=== PATIENT | male | born 1975 | race Caucasian/White ===

== ENCOUNTER 2018-07-31 17:27 | Inpatient (IN) ==
[2018-07-31] MEDS ORDERED: Sod Chloride 0.9% Inj 1,000 ML IV.SIG ONE (19:50)
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
[2018-07-31 20:58] LABS: Baso % (Auto) 0.4 % (0.0-2.0); Eos # (Auto) 0.1 th/mm3 (0.0-0.4); Hematocrit 40.4 % (39.0-51.0); Hemoglobin 14.4 gm/dL (13.0-17.0); Lymph # (Auto) 3.4 th/mm3 (1.0-4.8); Lymph % (Auto) 34.8 % (9.0-44.0); Mean Corpuscular HGB Conc 35.8 % (32.0-36.0); Mean Corpuscular Hemoglobin 32.4 pg (27.0-34.0); Mean Corpuscular Volume 90.7 fL (80.0-100.0); Mean Platelet Volume 7.9 fL (7.0-11.0); Mono # (Auto) 1.2 th/mm3 (0.0-0.9); Mono % (Auto) 12.6 % (0.0-8.0); Neut % (Auto) 51.2 % (16.0-70.0); Platelet Count 272 th/mm3 (150-450); Red Blood Count 4.45 mil/mm3 (4.50-5.90); Red Cell Distribution Width 12.4 % (11.6-17.2); White Blood Count 9.7 th/mm3 (4.0-11.0)
[2018-07-31 21:04] LABS: Bilirubin,Urine Negative (Negative); Clarity,Urine Clear (Clear); Color,Urine Yellow (Yellw/Straw); Glucose,Urine (UA) Negative (Negative); Leukocyte Esterase,Urine Negative (Negative); Nitrite,Urine Negative (Negative); Specific Gravity,Urine Greater/Equal 1.030 (1.002-1.035); Urobilinogen,Urine 0.2 mg/dL (Less than 2)
[2018-07-31 21:06] LABS: Chloride 105 meq/L (98-107); Potassium 3.5 meq/L (3.5-5.1); Sodium 140 meq/L (136-145)
[2018-07-31 21:07] LABS: Mucus,Urine Many /lpf (Occasional); RBC,Urine 0-3 /hpf (0-3); Squamous Epithelial Cell,Urine 0-5 /hpf (0-5); WBC,Urine 0-5 /hpf (0-5)
[2018-07-31 21:10] LABS: Albumin 3.6 g/dL (3.4-5.0); Anion Gap 10 meq/L (5-15); Blood Urea Nitrogen 15 mg/dL (7-18); Calcium 9.2 mg/dL (8.5-10.1); Carbon Dioxide 25.1 meq/L (21.0-32.0); Glucose,Random 109 mg/dL (74-106); Lipase 201 U/L (73-393)
[2018-07-31 21:13] LABS: Alanine Aminotransferase 28 U/L (12-78); Aspartate Aminotransferase 33 U/L (15-37); Glomerular Filtration Rate 73 mL/min (>89)
--- NOTE | 2018-07-31 21:14 | XR ---
EXAM DATE: 07/31/2018 9:03 PM EDT AGE/SEX: 43 years / Male INDICATIONS: Fever and short of breath for two days. CLINICAL DATA: This is the patient's initial encounter. Patient reports that signs and symptoms have been present for 1 day and indicates a pain score of 0/10. MEDICAL/SURGICAL HISTORY: None. None. COMPARISON: [facility], CHEST 1V SINGLE AP, 07/15/2018. . FINDINGS: There is a 3.3 cm mass of the right midlung with possible cavitation, new. There is mild consolidation of the left lung base. No pleural effusion or pneumothorax. CONCLUSION: 1. Right mid lung mass with possible cavitation. As this is new, it is presumably infectious or infl ammatory. 2. Mild left base consolidation seen as well. Electronically signed by: Alessio Rodriguez MD 07/31/2018 9:13 PM EDT
[2018-07-31 21:15] LABS: Total Protein 7.6 g/dL (6.4-8.2)
[2018-07-31 21:16] LABS: Alkaline Phosphatase 84 U/L (45-117)
[2018-07-31 21:22] LABS: Thyroid Stimulating Hormone 1.8 uIU/mL (0.358-3.740)
[2018-07-31] MEDS ORDERED: Aztreonam Inj 2 GM in Sodium Chloride 0.9% Inj 100 ML IV.SIG ONE (21:30)
[2018-07-31] MEDS ORDERED: Sod Chloride 0.9% Inj 1,000 ML IV.SIG SCH (21:30)
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
[2018-07-31] MEDS: Sod Chloride 0.9% Inj 1,000 ML IV.CONT SCH (22:44)
[2018-08-01] MEDS: Sod Chloride 0.9% Inj 1,000 ML IV.CONT SCH ×3 (05:50→17:33)
[2018-08-01 06:24] LABS: Baso % (Auto) 0.2 % (0.0-2.0); Eos # (Auto) 0.2 th/mm3 (0.0-0.4); Eos % (Auto) 1.8 % (0.0-4.0); Hematocrit 37.2 % (39.0-51.0); Lymph # (Auto) 2.8 th/mm3 (1.0-4.8); Lymph % (Auto) 33.9 % (9.0-44.0); Mean Corpuscular HGB Conc 34.9 % (32.0-36.0); Mean Corpuscular Hemoglobin 31.6 pg (27.0-34.0); Mean Corpuscular Volume 90.5 fL (80.0-100.0); Mean Platelet Volume 8.6 fL (7.0-11.0); Mono # (Auto) 1.3 th/mm3 (0.0-0.9); Mono % (Auto) 15.9 % (0.0-8.0); Neut # (Auto) 4.1 th/mm3 (1.8-7.7); Neut % (Auto) 48.2 % (16.0-70.0); Platelet Count 232 th/mm3 (150-450); Red Blood Count 4.11 mil/mm3 (4.50-5.90); Red Cell Distribution Width 12.8 % (11.6-17.2); White Blood Count 8.4 th/mm3 (4.0-11.0)
[2018-08-01 06:27] LABS: Potassium 3.9 meq/L (3.5-5.1)
[2018-08-01 06:45] LABS: Calcium 8.4 mg/dL (8.5-10.1); Carbon Dioxide 25.5 meq/L (21.0-32.0)
[2018-08-01] MEDS ORDERED: Tuberculin PPD 5 UNITS/0.1 ML Syringe I-DERMAL ONE (08:00)
[2018-08-01] MEDS: Acetaminophen 325 MG Tablet PO PRN ×2 (08:16→20:20)
[2018-08-01] MEDS: Enoxaparin Inj 40 MG/0.4 ML Syringe SQ SCH (08:16)
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
--- NOTE | 2018-08-01 15:45 | MB ---
cc: Chioma Bedolla MD DATE: 08/01/2018 REASON FOR CONSULTATION: Bilateral lung nodules. HISTORY OF PRESENT ILLNESS: The patient is a 43-year-old male who presents to the emergency room with a fever which he had at home. The patient has previously been in the emergency room on 07/15/2018 with an insect bite and cellulitis, for which he was given antibiotic therapy. 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 He denies history of cough, expectoration, hemoptysis, TB or previous industrial exposure. PAST MEDICAL HISTORY: Insect bite and cellulitis as above. FAMILY HISTORY: Noncontributory. SOCIAL HISTORY: The patient does smoke a pack of cigarettes a day for over 20 years, has 2-3 drinks a week. Does not use drugs. REVIEW OF SYSTEMS: A 12-point review of systems as per HPI. PAST HISTORY: Otherwise negative. PHYSICAL EXAMINATION: VITAL SIGNS: Temperature max 102 degrees Fahrenheit, pulse 90, respirations 18, blood pressure 140/78. HEENT: Unremarkable. Eyes without icterus. NECK: Without adenopathy, thyroid enlargement. Central trachea. CHEST: Without dullness to percussion. Clear to auscultation. HEART: PMI not appreciated. S1, S2 audible. No murmur. No rub. ABDOMEN: Lax, audible bowel sounds. PSYCHIATRIC: No clubbing, cyanosis or edema. SKIN: No lymphadenopathy. LABORATORY DATA: White count 9.7, hemoglobin 14, hematocrit 40. Sodium 140, potassium 3.5, BUN 15, creatinine 1.1. IMAGIN. Chest x-ray with a questionable mass, right mid lung. 2. CT scan of the chest with scattered areas of nodular consolidation in both lungs and ground glass appearance favor infectious process. Fatty liver is noted. IMPRESSION: Bilateral lung nodules with temperature elevation. PLAN: The patient's findings by CT are suggestive of an infectious process. Antibiotic therapy has been initiated intravenously and appropriately, so I would assess the patient's response in temperature elevation. Should he show improvement and resolution of underlying findings, well and good. If not, further evaluation will become necessary. I do thank you for asking me to partake in Mr. Faw's care. MD KIRAN Rahman/[email or web address]/rey , 10:38 AM , 10:46 AM
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
[2018-08-01] MEDS ORDERED: Levofloxacin 250 mg Premix Inj 250 MG/50 ML PIGGYBACK IV.SIG SCH (22:00)
[2018-08-02 04:20] LABS: Hepatitits B Surface Antigen Nonreactive (Nonreactive)
[2018-08-02 04:44] LABS: Hepatitis A IgM Antibody Nonreactive (Nonreactive)
[2018-08-02] MEDS: Sod Chloride 0.9% Inj 1,000 ML IV.CONT SCH (05:50)
[2018-08-02] MEDS: Enoxaparin Inj 40 MG/0.4 ML Syringe SQ SCH (08:41)
--- NOTE | 2018-08-02 08:49 | P.PN ---
Subjective Interval history: 43-year-old male who is seen and examined today for follow-up on abnormal CT, atypical lung nodules, febrile illness. Patient still with some low-grade fever of 100.2 at 8 PM last night. Since then patient been afebrile. Still awaiting echocardiogram. Patient did have dental work done one month prior to his symptoms starting. Patient also started with new tattoo work 2 days ago. Physical Exam Vital signs: Vital Signs 08/01/18 09:39 08/01/18 11:44 08/01/18 20:00 Temperature 98.7 F 100.2 F H Pulse Rate 73 84 Respiratory Rate 20 18 20 Blood Pressure 129/63 156/86 H Pulse Oximetry 95 96 08/02/18 00:00 Temperature 98.4 F Pulse Rate 67 Respiratory Rate 20 Blood Pressure 145/85 H Pulse Oximetry 95 Intake & Output 08/01/18 08/02/18 08/02/18 18:59 06:59 18:59 Intake Total 3040 / 3040 1240 / 1240 Balance 3040 / 3040 1240 / 1240 Weight 104.3 kg Intake: IV 2100 / 2100 1000 / 1000 NS Inj 1,000 ML @ 100 mls/hr IV 2000 / 2000 1000 / 1000 .CONT .Q10H [facility] Rx#:[id number] Rocephin Inj 2,000 MG In NS Inj 100 / 100 100 ML @ 200 mls/hr IV.SIG Q24H [facility] Rx#:[id number] Oral 940 / 940 240 / 240 Other: # Voids 6 4 # Bowel Movements 2 Narrative: GENERAL: Well-developed, well-nourished, in no acute distress. alert and orientated HEENT: Head is normocephalic without any lesions or masses noted. Facial features are symmetric. Eyes: Extraocular muscles are intact. Conjunctivae were clear. NECK: Supple without any masses. Trachea midline no deviation. No JVD, CARDIAC: Regular rhythm, regular rate. S1/S2 are heard. No murmurs gallops or rubs. LUNGS: Clear to auscultation bilaterally. No wheeze, rhonchi or rales. No use of accessory muscles on inspiration or expiration. ABDOMEN: Soft, nontender. Nondistended. Bowel sounds heard in all 4 quadrants. No organomegaly or masses. Negative rebound, negative guarding EXTREMITIES: No edema, pulses are equal bilaterally. No cyanosis or clubbing NEUROLOGY: Mood and affect appear appropriate. Cranial nerves II through XII grossly intact. Moving all extremities, speech is clear Results - Labs CBC & Chem 7: 08/01/18 05:13 08/01/18 05:13 Laboratory Results - last 24 hr 08/01/18 08/01/18 22:50 22:50 C-Reactive Protein 5.73 H Hepatitis A IgM Ab Nonreactive Hep Bs Antigen Nonreactive Hep B Core IgM Ab Nonreactive Hep C IgG Ab Nonreactive Microbiology 07/31/18 20:48 Blood - Peripheral Aerobic Blood Culture - Preliminary No growth in 1 day 07/31/18 20:48 Blood - Peripheral Anaerobic Blood Culture - Preliminary No growth in 1 day 07/31/18 20:42 Blood - Peripheral Aerobic Blood Culture - Preliminary No growth in 1 day 07/31/18 20:42 Blood - Peripheral Anaerobic Blood Culture - Preliminary No growth in 1 day Assessment and Plan - Assessment (1) Fever Code(s): R50.9 - Fever, unspecified Status: Acute (2) Pneumonia Code(s): J18.9 - Pneumonia, unspecified organism Status: Acute (3) Pulmonary cavitary lesion Code(s): J98.4 - Other disorders of lung Status: Acute - Plan Febrile illness with abnormal radiological studies -Patient with recent insect bite which has improved. Previous chest x-ray on was normal. Now presenting with significant x-ray findings of cavitary lesion, CT finding of scattered nodular densities, ringlike lesion of the liver. -Suspecting endocarditis -Patient changed over to Rocephin IV -C-reactive protein elevated -Awaiting echocardiogram -Blood cultures are negative for 1 day, fungal blood cultures are pending -Infectious disease is following the patient -Data Report Analyst is following the patient DVT prevention -Sequential compression devices
--- NOTE | 2018-08-02 15:34 | ECHRPT ---
Indication: SEPSIS CONCLUSIONS The left ventricular systolic function is normal with an estimated ejection fraction in the range of 60-65%. Normal left ventricular size. Wall thickness is normal. No regional wall motion abnormalities are present. Trivial pulmonary valve regurgitation. BP: / HR: Rhythm: Sinus MEASUREMENTS (Male / Female) Normal Values Technical Quality:Good 2D ECHO LV Diastolic Diameter PLAX 4.9 cm 4.2 - 5.9 / 3.9 - 5.3 cm LV Systolic Diameter PLAX 3.4 cm IVS Diastolic Thickness 0.9 cm 0.6 - 1.0 / 0.6 - 0.9 cm LVPW Diastolic Thickness 1.0 cm 0.6 - 1.0 / 0.6 - 0.9 cm LV Relative Wall Thickness 0.4 RV Internal Dim ED PLAX 2.8 cm LVOT Diameter 2.2 cm LA Systolic Diameter LX 3.4 cm 3.0 - 4.0 / 2.7 - 3.8 cm LV Ejection Fraction MOD 4C 69.2 % LV Ejection Fraction 4C AL 71.8 % M-MODE Aortic Root Diameter MM 2.4 cm LA Systolic Diameter MM 3.4 cm LA Ao Ratio MM 1.4 AV Cusp Separation MM 2.2 cm DOPPLER AV Peak Velocity 157.0 cm/s AV Peak Gradient 9.9 mmHg LVOT Peak Velocity 127.0 cm/s LVOT Peak Gradient 6.5 mmHg AV Area Cont Eq pk 3.1 cm MV Area PHT 4.0 cm Mitral E Point Velocity 45.7 cm/s Mitral A Point Velocity 64.7 cm/s Mitral E to A Ratio 0.7 LV E' Lateral Velocity 6.9 cm/s Mitral E to LV E' Lateral Ratio 6.6 LV E' Septal Velocity 11.1 cm/s Mitral E to LV E' Septal Ratio 4.1 PV Peak Velocity 96.4 cm/s PV Peak Gradient 3.7 mmHg FINDINGS LEFT VENTRICLE The left ventricular systolic function is normal with an estimated ejection fraction in the range of 60-65%. Normal left ventricular size. Wall thickness is normal. No regional wall motion abnormalities are present. RIGHT VENTRICLE Normal right ventricular size and systolic function. LEFT ATRIUM The left atrial size is normal. RIGHT ATRIUM The right atrial size is normal. ATRIAL SEPTUM Normal atrial septal thickness without atrial level shunting by limited color doppler interrogation. AORTA The aortic root and proximal ascending aorta are normal in size on limited imaging. MITRAL VALVE Structurally normal mitral valve. No mitral valve stenosis or regurgitation. AORTIC VALVE Trileaflet aortic valve. No aortic valve stenosis or regurgitation. TRICUSPID VALVE Structurally normal tricuspid valve. No tricuspid valve stenosis or regurgitation. PULMONARY VALVE Trivial pulmonary valve regurgitation. VESSELS The inferior vena cava is normal in size. PERICARDIUM No pericardial effusion. Areli Molina MD (Electronically Signed) Final Date:02 August 2018 15:33
[2018-08-02] MEDS: Acetaminophen 325 MG Tablet PO PRN (20:56)
[2018-08-03] MEDS: Enoxaparin Inj 40 MG/0.4 ML Syringe SQ SCH (08:16)
[2018-08-03] MEDS: Acetaminophen 325 MG Tablet PO PRN (08:32)
--- NOTE | 2018-08-03 09:16 | P.PN ---
Subjective Interval history: 43-year-old male who is seen and examined today for follow-up on fever, atypical pneumonia, abnormal x-ray. Patient is afebrile at this time. Denies any new complaints. States that he has been getting some chills and sweats, however has not had any fever. Vital signs remained stable Physical Exam Vital signs: Vital Signs 08/02/18 12:00 08/02/18 16:00 08/02/18 20:00 Temperature 98.8 F 97.1 F L 98.6 F Pulse Rate 81 74 69 Respiratory Rate 18 18 18 Blood Pressure 169/81 H 131/73 161/81 H Pulse Oximetry 96 96 95 08/03/18 00:00 08/03/18 02:09 Temperature 98.3 F Pulse Rate 72 Respiratory Rate 18 18 Blood Pressure 133/75 Pulse Oximetry 95 Intake & Output 08/02/18 08/03/18 08/03/18 18:59 06:59 18:59 Intake Total 2980 / 2980 1000 / 1000 Balance 2980 / 2980 1000 / 1000 Weight 104.3 kg Intake: IV 1100 / 1100 NS Inj 1,000 ML @ 100 mls/hr IV 1000 / 1000 .CONT .Q10H [facility] Rx#:[id number] Rocephin Inj 2,000 MG In NS Inj 100 / 100 100 ML @ 200 mls/hr IV.SIG Q24H [facility] Rx#:[id number] Oral 1880 / 1880 1000 / 1000 Other: # Voids 4 2 Date of Last Bowel Movement 08/02/18 # Bowel Movements 1 Narrative: GENERAL: Well-developed, well-nourished, in no acute distress. alert and orientated HEENT: Head is normocephalic without any lesions or masses noted. Facial features are symmetric. Eyes: Extraocular muscles are intact. Conjunctivae were clear. NECK: Supple without any masses. Trachea midline no deviation. No JVD, CARDIAC: Regular rhythm, regular rate. S1/S2 are heard. No murmurs gallops or rubs. LUNGS: Clear to auscultation bilaterally. No wheeze, rhonchi or rales. No use of accessory muscles on inspiration or expiration. ABDOMEN: Soft, nontender. Nondistended. Bowel sounds heard in all 4 quadrants. No organomegaly or masses. Negative rebound, negative guarding EXTREMITIES: No edema, pulses are equal bilaterally. No cyanosis or clubbing NEUROLOGY: Mood and affect appear appropriate. Cranial nerves II through XII grossly intact. Moving all extremities, speech is clear Results - Labs CBC & Chem 7: 08/01/18 05:13 08/01/18 05:13 Microbiology 08/02/18 13:15 Urine - Clean Catch Urine Legionella Antigen - Final Presumptive negative for Legionella pneumophila serogroup 1 antigen in urine, suggesting no recent or recurrent infection. Infection due to Legionella cannot be ruled out since other serogroups and species may cause disease, antigen may not be present in urine in early infection, and the level of antigen present in the urine may be below the detection limit of the test. 07/31/18 20:48 Blood - Peripheral Aerobic Blood Culture - Preliminary No growth in 2 days 07/31/18 20:48 Blood - Peripheral Anaerobic Blood Culture - Preliminary No growth in 2 days 07/31/18 20:42 Blood - Peripheral Aerobic Blood Culture - Preliminary No growth in 2 days 07/31/18 20:42 Blood - Peripheral Anaerobic Blood Culture - Preliminary No growth in 2 days - Procedures ECHOCARDIOGRAM CONCLUSIONS The left ventricular systolic function is normal with an estimated ejection fraction in the range of 60-65%. Normal left ventricular size. Wall thickness is normal. No regional wall motion abnormalities are present. Trivial pulmonary valve regurgitation. Assessment and Plan - Assessment (1) Fever Code(s): R50.9 - Fever, unspecified Status: Acute (2) Pneumonia Code(s): J18.9 - Pneumonia, unspecified organism Status: Acute (3) Pulmonary cavitary lesion Code(s): J98.4 - Other disorders of lung Status: Acute - Plan Febrile illness with abnormal radiological studies -Patient with recent insect bite which has improved. Previous chest x-ray on was normal. Now presenting with significant x-ray findings of cavitary lesion, CT finding of scattered nodular densities, ringlike lesion of the liver. -Suspecting endocarditis -Continue Rocephin IV -C-reactive protein elevated -Echocardiogram was unremarkable see results above -Blood cultures are negative for 2 day, fungal blood cultures are pending -Infectious disease is following the patient -Underground Miner is following the patient DVT prevention -Sequential compression devices
--- NOTE | 2018-08-03 14:53 | XR ---
EXAM DATE: 08/03/2018 2:40 PM EDT AGE/SEX: 43 years / Male INDICATIONS: COPD, pneumonia, mass, fever CLINICAL DATA: This is the patient's subsequent encounter. Patient reports that signs and symptoms h ave been present for 4 - 6 days and indicates a pain score of 0/10. MEDICAL/SURGICAL HISTORY: None. None. COMPARISON: [facility], CT CHEST W CONTRAST, 07/31/2018. Chest x-ray 07/31/2018 . FINDINGS: A single AP view of the chest demonstrates no interval change. A rounded area consolidation is seen w ithin the lateral right upper lobe. The consolidation involving the lingula on the CT scan is partial ly obscured by the heart that appears unchanged as well. No effusions. Linear scarring within the lef t base. Heart is normal in size. Bony structures are unremarkable. CONCLUSION: Unchanged rounded areas of consolidation involving the right upper lobe and lingula. Electronically signed by: Rao Grimes MD 08/03/2018 2:52 PM EDT
[2018-08-04] MEDS: Enoxaparin Inj 40 MG/0.4 ML Syringe SQ SCH (08:16)
--- NOTE | 2018-08-04 09:13 | P.PN ---
Subjective Interval history: 43-year-old male who is seen and examined today for follow-up on atypical pneumonia, possible endocarditis. Patient resting comfortably. Denies any new complaints. Patient remains afebrile. Discussed with the patient plans for PICC line and IV antibiotics. Physical Exam Vital signs: Vital Signs 08/03/18 12:00 08/03/18 16:00 08/03/18 20:00 Temperature 97.4 F L 98.2 F 98.1 F Pulse Rate 70 77 75 Respiratory Rate 18 18 18 Blood Pressure 136/84 140/82 134/80 Pulse Oximetry 98 98 95 08/04/18 00:00 08/04/18 08:00 Temperature 97.5 F L 98.1 F Pulse Rate 88 78 Respiratory Rate 18 16 Blood Pressure 168/86 H 139/78 Pulse Oximetry 94 L 96 Intake & Output 08/03/18 08/04/18 08/04/18 18:59 06:59 18:59 Intake Total 1080 / 1080 1000 / 1000 Balance 1080 / 1080 1000 / 1000 Weight 104.3 kg Intake: IV 100 / 100 Rocephin Inj 2,000 MG In NS Inj 100 / 100 100 ML @ 200 mls/hr IV.SIG Q24H ESTEFANIA Rx#:[id number] Oral 980 / 980 1000 / 1000 Other: # Voids 5 1 Date of Last Bowel Movement 08/03/18 # Bowel Movements 1 Narrative: GENERAL: Well-developed, well-nourished, in no acute distress. alert and orientated HEENT: Head is normocephalic without any lesions or masses noted. Facial features are symmetric. Eyes: Extraocular muscles are intact. Conjunctivae were clear. NECK: Supple without any masses. Trachea midline no deviation. No JVD, CARDIAC: Regular rhythm, regular rate. S1/S2 are heard. No murmurs gallops or rubs. LUNGS: Clear to auscultation bilaterally. No wheeze, rhonchi or rales. No use of accessory muscles on inspiration or expiration. ABDOMEN: Soft, nontender. Nondistended. Bowel sounds heard in all 4 quadrants. No organomegaly or masses. Negative rebound, negative guarding EXTREMITIES: No edema, pulses are equal bilaterally. No cyanosis or clubbing NEUROLOGY: Mood and affect appear appropriate. Cranial nerves II through XII grossly intact. Moving all extremities, speech is clear Results - Labs CBC & Chem 7: 08/01/18 05:13 08/01/18 05:13 Microbiology 07/31/18 20:48 Blood - Peripheral Aerobic Blood Culture - Preliminary No growth in 3 days 07/31/18 20:48 Blood - Peripheral Anaerobic Blood Culture - Preliminary No growth in 3 days 07/31/18 20:42 Blood - Peripheral Aerobic Blood Culture - Preliminary No growth in 3 days 07/31/18 20:42 Blood - Peripheral Anaerobic Blood Culture - Preliminary No growth in 3 days 08/02/18 13:15 Urine - Clean Catch Urine Legionella Antigen - Final Presumptive negative for Legionella pneumophila serogroup 1 antigen in urine, suggesting no recent or recurrent infection. Infection due to Legionella cannot be ruled out since other serogroups and species may cause disease, antigen may not be present in urine in early infection, and the level of antigen present in the urine may be below the detection limit of the test. - Imaging Impressions Chest X-Ray 08/03/18 13:16 CONCLUSION: Unchanged rounded areas of consolidation involving the right upper lobe and lingula. - Procedures ECHOCARDIOGRAM CONCLUSIONS The left ventricular systolic function is normal with an estimated ejection fraction in the range of 60-65%. Normal left ventricular size. Wall thickness is normal. No regional wall motion abnormalities are present. Trivial pulmonary valve regurgitation. Assessment and Plan - Assessment (1) Fever Code(s): R50.9 - Fever, unspecified Status: Acute (2) Pneumonia Code(s): J18.9 - Pneumonia, unspecified organism Status: Acute (3) Pulmonary cavitary lesion Code(s): J98.4 - Other disorders of lung Status: Acute - Plan Febrile illness with abnormal radiological studies -Patient with recent insect bite which has improved. Previous chest x-ray on was normal. Now presenting with significant x-ray findings of cavitary lesion, CT finding of scattered nodular densities, ringlike lesion of the liver. -Suspecting endocarditis -Continue Rocephin IV -C-reactive protein elevated -Echocardiogram was unremarkable see results above -Blood cultures are negative for 3 day, fungal blood cultures are pending -Infectious disease is following the patient -Boom Conveyor Operator is following the patient -Anticipate placement of PICC line today with outpatient IV antibiotics per infectious disease DVT prevention -Sequential compression devices Discharge Planning: Discharge planning once PICC line and IV antibiotics have been arranged.
--- NOTE | 2018-08-04 13:23 | P.DS ---
Date of admission: 07/31/18 21:35 Primary care physician: UNKNOWN Attending physician on discharge: Yumiko Skinner Anticipated date of discharge: 08/04/18 Brief History from admission: 43-year-old male with no chronic medical illnesses who presented to the emergency department for evaluation of fever. Patient states that approximate 2 weeks ago he was out of the [place] and got bit by some kind of bug on his left elbow. indicates that they also had a few tics as well. At that time the patient went to the emergency department on 07/15/18 and had full workup done with chest x-ray with was normal and discharged home on clindamycin. The bug bite on his left elbow did improve, however he had persistent fevers. He states that they get up to 102 mainly at night with cold sweats. Because a fever was relentless he came back to the emergency department for evaluation. On this evaluation patient was found to have significant radiological abnormalities with chest x-ray indicating cavitary lesion. CT scan was done which did show scattered areas of nodular parenchymal consolidation of both lungs, mostly groundglass in attenuation. There is a small enhancing lesion of the left hepatic lobe, nonspecific. Because of those abnormal findings within the last 2 weeks with persistent fever patient was started on Levaquin IV antibiotics and recommended admission. Upon evaluating patient denies any chest pain, shortness of breath, cough, congestion, rhinorrhea. Patient indicates that the bug bite on his left elbow has significantly improved. Patient denies any hemoptysis. DS: Diagnosis - Discharge Diagnosis (1) Fever Status: Acute (2) Pneumonia Status: Acute (3) Pulmonary cavitary lesion Status: Acute DS: Summary Hospital Course: 43-year-old male with no chronic medical illnesses who presented to the hospital initially for febrile illness. Patient was evaluated by Connie 2 weeks ago in the emergency department and started on clindamycin for an insect bite. At that time chest x-ray was unremarkable. Patient came back in because he had persistent fever and CT scan was done and showed scattered areas of nodular parenchymal consolidations both lungs, mostly groundglass in attenuation. There is small enhanced lesion of the left hepatic lobe of the liver. Chest x- ray was showing cavitary lesions. Patient was admitted to hospital with IV antibiotics to include Levaquin. Patient continued treatment and continued to have intermittent fevers. Patient did undergo echocardiogram without any acute abnormality or vegetations. Infectious disease was consulted. Patient was started on Rocephin 2 g daily, after antibiotics were changed patient has been afebrile. During the hospitalization patient did have blood cultures performed which have remained negative for 4 days. Legionella antigen was negative. Fungal blood cultures are pending. Suspect endocarditis which was likely partially treated with clindamycin. We will continue treatment for 6 weeks with Rocephin 2 g daily. plant quality manager will be consulted to help arrange outpatient IV antibiotics. Patient is clinically improved at this time. We will plan discharge once arrangements made. - Time Spent with Patient Total time spent providing and/or coordinating discharge services: Greater than 30 minutes - Quality: VTE Deep Vein Thrombosis/Pulmonary Embolism Present on Admission: No Exam Vital signs: Vital Signs 08/03/18 16:00 08/03/18 20:00 08/04/18 00:00 Temperature 98.2 F 98.1 F 97.5 F L Pulse Rate 77 75 88 Respiratory Rate 18 18 18 Blood Pressure 140/82 134/80 168/86 H Pulse Oximetry 98 95 94 L 08/04/18 08:00 08/04/18 12:00 Temperature 98.1 F 98.2 F Pulse Rate 78 83 Respiratory Rate 16 18 Blood Pressure 139/78 129/85 Pulse Oximetry 96 94 L Intake & Output 08/03/18 08/04/18 08/04/18 18:59 06:59 18:59 Intake Total 1080 / 1080 1000 / 1000 Balance 1080 / 1080 1000 / 1000 Weight 104.3 kg Intake: IV 100 / 100 Rocephin Inj 2,000 MG In NS Inj 100 / 100 100 ML @ 200 mls/hr IV.SIG Q24H ESTEFANIA Rx#:[id number] Oral 980 / 980 1000 / 1000 Other: # Voids 5 1 Date of Last Bowel Movement 08/03/18 # Bowel Movements 1 Narrative: GENERAL: Well-developed, well-nourished, in no acute distress. alert and orientated HEENT: Head is normocephalic without any lesions or masses noted. Facial features are symmetric. Eyes: Extraocular muscles are intact. Conjunctivae were clear. NECK: Supple without any masses. Trachea midline no deviation. No JVD, CARDIAC: Regular rhythm, regular rate. S1/S2 are heard. No murmurs gallops or rubs. LUNGS: Clear to auscultation bilaterally. No wheeze, rhonchi or rales. No use of accessory muscles on inspiration or expiration. ABDOMEN: Soft, nontender. Nondistended. Bowel sounds heard in all 4 quadrants. No organomegaly or masses. Negative rebound, negative guarding EXTREMITIES: No edema, pulses are equal bilaterally. No cyanosis or clubbing NEUROLOGY: Mood and affect appear appropriate. Cranial nerves II through XII grossly intact. Moving all extremities, speech is clear Results Procedures completed during hospitalization: ECHOCARDIOGRAM CONCLUSIONS The left ventricular systolic function is normal with an estimated ejection fraction in the range of 60-65%. Normal left ventricular size. Wall thickness is normal. No regional wall motion abnormalities are present. Trivial pulmonary valve regurgitation. Labs on day of discharge: Preliminary micro results at discharge 07/31/18 20:48 Aerobic Blood Culture - Preliminary Blood - Peripheral No growth in 4 days Anaerobic Blood Culture - Preliminary No growth in 4 days 07/31/18 20:42 Aerobic Blood Culture - Preliminary Blood - Peripheral No growth in 4 days Anaerobic Blood Culture - Preliminary No growth in 4 days - Impressions ITS Impressions Chest CT 07/31/18 21:27 CONCLUSION: 1. Scattered areas of nodular parenchymal consolidation of both lungs, mostly groundglass in attenuation. An infectious or inflammatory infiltrate would be most likely. For the latter, eosinophilic and cryptogenic organizing pneumonia would be in the differential. 2. Fatty liver that is also probably enlarged, only partly included on the study. There is a small enhancing lesion of the left hepatic lobe, nonspecific. If felt clinically indicated, nonemergent abdomen MRI with and without contrast may be helpful in further characterizing. Chest X-Ray 08/03/18 13:16 CONCLUSION: Unchanged rounded areas of consolidation involving the right upper lobe and lingula. Discharge Plan - Discharge Condition Condition: Stable - Physicians Team Primary Care Provider: UNKNOWN, Attending Provider: Yumiko Skinner Other Providers: Janna Berrios MD ; Chioma Bedolla MD ; Tyra Lane,Benson
--- NOTE | 2018-08-04 13:57 | P.DCO ---
Post Hospital Infusion Therapy Location of Infusion Therapy: [facility] IV Infusion Order Appointment Date: 08/04/18 Patient Weight: 104.3 kg - Diagnosis (1) Endocarditis Code(s): I38 - Endocarditis, valve unspecified - Administer Medication Ceftriaxone Dose: 2 grams IV Directions: q 24 hours Start Treatment: 08/04/18 Stop Treatment: 09/11/18 - Additional Information Venous Access: PICC Line Additional Instructions: [x] Peripheral flush and dressing changes per protocol [x] Implanted port and central quitline counselor: * Implanted port: 10 ml Normal Saline followed by 5 ml Heparin 100 units/ml Heparin flush after each use and monthly to maintain. [] May leave port accessed during therapy. [] May leave peripheral site accessed for duration of therapy. [x] If patient has SOB or respiratory distress, check oxygen saturation. If less than 90% or clinical signs of respiratory distress, administer oxygen at 2 L/min. via nasal cannula and notify physician. [x] Anaphylaxis/Reaction orders: * Stop infusion. * Keep IV line open with saline flush. * Notify physician. * Monitor vital signs every 15 minutes until symptoms resolve. * Check Oxygen saturation; Oxygen at 2 L/min. via nasal cannula if less than 90% or clinical signs of respiratory distress. * Administer diphenhydramine (Benadryl) 25 mg IV STAT, (unless patient has received as pre-med). May repeat once, if necessary. * Solu-Cortef 250 mg IVP over 30-60 seconds, use 100 mg vials for each dissolution. * Epinephrine (1mg/1 ml) 0.3 mg subcutaneously or IVP now with any signs of respiratory distress. * Check with physician for new additional pre-med orders if patient is re- challenged or re-treated. [x] May remove PICC line when treatment complete, after confirming with Physician. [x] If the patient is admitted to the hospital, the ED, or transferred via [facility] , complete transfer form including medication reconciliation order sheet. Weekly Labs: CBC w/diff, Creatinine, CRP, LFTs (Hepatic Function Test) Case Management Consult: Yes Allergies penicillin G Allergy (Unknown, Verified 07/15/18 13:35) Burning
--- NOTE | 2018-08-04 14:59 | P.PN ---
Subjective Interval history: alert no fever cxray no change Physical Exam Vital signs: Vital Signs 08/03/18 16:00 08/03/18 20:00 08/04/18 00:00 Temperature 98.2 F 98.1 F 97.5 F L Pulse Rate 77 75 88 Respiratory Rate 18 18 18 Blood Pressure 140/82 134/80 168/86 H Pulse Oximetry 98 95 94 L 08/04/18 08:00 08/04/18 12:00 Temperature 98.1 F 98.2 F Pulse Rate 78 83 Respiratory Rate 16 18 Blood Pressure 139/78 129/85 Pulse Oximetry 96 94 L Intake & Output 08/03/18 08/04/18 08/04/18 18:59 06:59 18:59 Intake Total 1080 / 1080 1000 / 1000 Balance 1080 / 1080 1000 / 1000 Weight 104.3 kg 104.3 kg Intake: IV 100 / 100 Rocephin Inj 2,000 MG In NS Inj 100 / 100 100 ML @ 200 mls/hr IV.SIG Q24H ESTEFANIA Rx#:[id number] Oral 980 / 980 1000 / 1000 Other: # Voids 5 1 Date of Last Bowel Movement 08/03/18 # Bowel Movements 1 Narrative: GENERAL: Well-developed, well-nourished, in no acute distress. alert and orientated HEENT: Head is normocephalic without any lesions or masses noted. Facial features are symmetric. Eyes: Extraocular muscles are intact. Conjunctivae were clear. NECK: Supple without any masses. Trachea midline no deviation. No JVD, CARDIAC: Regular rhythm, regular rate. S1/S2 are heard. No murmurs gallops or rubs. LUNGS: Clear to auscultation bilaterally. No wheeze, rhonchi or rales. No use of accessory muscles on inspiration or expiration. ABDOMEN: Soft, nontender. Nondistended. Bowel sounds heard in all 4 quadrants. No organomegaly or masses. Negative rebound, negative guarding EXTREMITIES: No edema, pulses are equal bilaterally. No cyanosis or clubbing NEUROLOGY: Mood and affect appear appropriate. Cranial nerves II through XII grossly intact. Moving all extremities, speech is clear Results - Labs CBC & Chem 7: 08/01/18 05:13 08/01/18 05:13 Microbiology 07/31/18 20:48 Blood - Peripheral Aerobic Blood Culture - Preliminary No growth in 4 days 07/31/18 20:48 Blood - Peripheral Anaerobic Blood Culture - Preliminary No growth in 4 days 07/31/18 20:42 Blood - Peripheral Aerobic Blood Culture - Preliminary No growth in 4 days 07/31/18 20:42 Blood - Peripheral Anaerobic Blood Culture - Preliminary No growth in 4 days - Procedures ECHOCARDIOGRAM CONCLUSIONS The left ventricular systolic function is normal with an estimated ejection fraction in the range of 60-65%. Normal left ventricular size. Wall thickness is normal. No regional wall motion abnormalities are present. Trivial pulmonary valve regurgitation. Assessment and Plan - Plan imp: PNA ? BE ASYMPTOMATIC PLAN HOME ON ANTIBX PER ID OFFICE WITH CXRAY 1 WEEK
[2018-08-04 17:39] VITALS: BP 151/81; PULSE 102; RESP 17; TEMP 97.4; O2SAT 96
[2018-08-04] MEDS ORDERED: Heparin Central Flush 100 UNIT/ML 5 ML Vial IV.FLUSH PRN (17:58)
[2018-08-05] MEDS ORDERED: Heparin Central Flush 100 UNIT/ML 5 ML Vial IV.FLUSH SCH (09:00)
== END 2018-08-04 18:13 | disposition home or self-care (01) ==
LOC: PHED 17:27 → PHEDA 21:35 → PH3 23:52
PROVIDERS: ADMIT Family Medicine; ATTEND Family Medicine